=== PATIENT | male | born 1945 | race Caucasian/White ===

== ENCOUNTER 2019-03-22 21:48 | Inpatient (IN) | payer OTHER, MEDICARE ==
[2019-03-22] MEDS ORDERED: Acetaminophen/HYDROcodone 325-10 MG Tab PO ONE (22:07)
--- NOTE | 2019-03-22 22:12 | EDM.PDOC ---
ED HPI GENERAL MEDICAL PROBLEM - General Chief Complaint: Lower Extremity Injury/Pain Stated Complaint: FALL/LT HIP PAIN Time Seen by Provider: 03/22/19 22:07 Source of Information: Reports: Patient History Limitations: Reports: No Limitations - History of Present Illness INITIAL COMMENTS - FREE TEXT/NARRATIVE: Patient slipped on ice in a parking lot, landed on left buttock. Complains of pain to this area. Painful to bear weight on the left leg. Denies any other injuries. No headache, loss of consciousness, neck pain, chest pain, shortness of breath, abdominal pain, numbness, tingling or weakness. He takes no medications. Denies h/o CAD. Onset: Today Duration: Hour(s): (1) Location: Reports: Pelvis Quality: Reports: Dull Severity: Moderate left hip Pain Score (Numeric/FACES): 7 - Related Data Allergies Allergy/AdvReac Type Severity Reaction Status Date / Time No Known Allergies Allergy Verified 03/22/19 22:27 Home Meds: Home Meds Aspirin [Lo-Dose Aspirin EC] 81 mg PO DAILY 03/22/19 [History] Multivit-Min/FA/Lycopen/Lutein [Centrum Silver Men Tablet] 1 tab PO DAILY [History] Past Medical History - Past Health History Medical/Surgical History: Denies Medical/Surgical History Review of Systems - Review of Systems Review Of Systems: Comprehensive ROS is negative, except as noted in HPI. ED EXAM, GENERAL - Physical Exam Exam: See Below Exam Limited By: No Limitations General Appearance: Alert, WD/WN, No Apparent Distress Eye Exam: Bilateral Eye: EOMI, PERRL Throat/Mouth: No Airway Compromise Head: Atraumatic, Normocephalic Neck: Non-Tender Respiratory/Chest: No Respiratory Distress, Lungs Clear, Normal Breath Sounds Cardiovascular: Regular Rate, Rhythm, No Murmur Peripheral Pulses: 2+: Dorsalis Pedis (L) GI/Abdominal: Non-Tender Back Exam: Full Range of Motion. No: Vertebral Tenderness Extremities: Other (left buttock tenderness. No hip tenderness. No rotation or shortening of the leg.) Neurological: Alert, Oriented, Normal Cognition, No Motor/Sensory Deficits Psychiatric: Normal Affect, Normal Mood Skin Exam: Warm, Dry, Intact Course - Vital Signs Last Recorded V/S: Last Vital Signs Temp 36.5 C 03/22/19 21:48 Pulse 80 03/22/19 21:48 Resp 18 03/22/19 21:48 BP 153/72 H 03/22/19 21:48 Pulse Ox 95 03/22/19 21:48 - Orders/Labs/Meds Orders: Active Orders 24 hr Category Date Time Status Admission Status [Patient Status] [ADT] Routine ADT 03/22/19 22:52 Ordered Hip Min 2V or 3V w Pelvis Lt [CR] Stat Exams 03/22/19 21:51 Taken Meds: Medications Discontinued Medications Generic Name Dose Route Start Last Admin Trade Name Frerubén PRN Reason Stop Dose Admin Hydrocodone Bitart/Acetaminophen 1 tab 03/22/19 22:07 03/22/19 22:55 [place] 325-10 Mg PO 03/22/19 22:08 1 tab ONETIME ONE Administration - Radiology Interpretation Free Text/Narrative:: Left Hip w/ Pelvis XR: Fracture of left superior pubic ramus. A left inferior pubic ramus fracture most likely also present. No femur fracture. - Re-Assessments/Exams Free Text/Narrative Re-Assessment/Exam: 03/22/19 22:59 Patient care discussed with Dr. Anuel Bauer, fracture is non-operative, recommends weight bearing as tolerated and PCP follow up. Patient lives alone and must climb steps to enter home. He does not feel safe to be discharged home this evening. Will refer to observation at [facility]. Departure - Departure Time of Disposition: 23:02 Disposition: Refer to Observation Condition: Good Clinical Impression: Closed fracture of pubic ramus Qualifiers: Encounter type: initial encounter Laterality: left Qualified Code(s): S32.592A - Other specified fracture of left pubis, initial encounter for closed fracture - Discharge Information *PRESCRIPTION DRUG MONITORING PROGRAM REVIEWED*: Yes *COPY OF PRESCRIPTION DRUG MONITORING REPORT IN PATIENT BRANNON: Not Applicable Forms: ED Department Discharge Sepsis Event Note - Focused Exam Vital Signs: Vital Signs Temp Pulse Resp BP Pulse Ox 03/22/19 21:48 36.5 C 80 18 153/72 H 95 Date Exam was Performed: 03/22/19 Time Exam was Performed: 22:57 - My Orders Last 24 Hours: My Active Orders 03/22/19 21:51 Hip Min 2V or 3V w Pelvis Lt [CR] Stat 03/22/19 22:52 Admission Status [Patient Status] [ADT] Routine - Assessment/Plan Last 24 Hours: My Active Orders 03/22/19 21:51 Hip Min 2V or 3V w Pelvis Lt [CR] Stat 03/22/19 22:52 Admission Status [Patient Status] [ADT] Routine
[2019-03-23] MEDS: Acetaminophen/HYDROcodone 325-5 MG Tab PO PRN ×4 (05:00→23:30)
[2019-03-23] MEDS: Enoxaparin 40 MG/0.4 ML Syringe SUBCUT SCH (11:45)
--- NOTE | 2019-03-23 12:22 | PCM.HP.2 ---
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 After the best but anyone total parking lot and slipped on the ice on his left buttocks. He said he had someone help him up and then drive him to the ER. He complained of left hip pain. He was x-rayed and showed to have a left superior and inferior pelvic ramus fracture. She reports shows no left hip fracture. Patient says is in a lot of pain but the pain pills are helping. He has no other medical conditions. He says he's been feeling fine. left hip Pain Score (Numeric/FACES): 7 - Related Data Allergies/Adverse Reactions: Allergies Allergy/AdvReac Type Severity Reaction Status Date / Time No Known Allergies Allergy Verified 03/22/19 22:27 Home Medications: Home Meds Aspirin [Lo-Dose Aspirin EC] 81 mg PO DAILY 03/22/19 [History] Multivit-Min/FA/Lycopen/Lutein [Centrum Silver Men Tablet] 1 tab PO DAILY [History] Past Medical History - Past Health History Medical/Surgical History: Denies Medical/Surgical History Respiratory History: Reports: Pulmonary Fibrosis, Other (See Below) Other Respiratory History: some emphysema Dermatologic History: Reports: Eczema, Other (See Below) Other Dermatologic History: very dry itchy skin in the winter - Infectious Disease History Infectious Disease History: Reports: Chicken Pox, Measles, Mumps - Past Surgical History Respiratory Surgical History: Reports: None GI Surgical History: Reports: Appendectomy, Hernia Repair/Other Musculoskeletal Surgical History: Reports: Arthroscopic Knee Social & Family History - Family History Family Medical History: Noncontributory - Tobacco Use Smoking Status *Q: Current Every Day Smoker Years of Tobacco use: 50 Packs/Tins Daily: 1 Used Tobacco, but Quit: No Second Hand Smoke Exposure: Yes - Caffeine Use Caffeine Use: Reports: Coffee Other Caffeine Use: 4-5 cups coffee - Alcohol Use Number of Drinks Per Day: 0 - Recreational Drug Use Recreational Drug Use: No H&P Review of Systems - Review of Systems: Review Of Systems: See Below General: Reports: No Symptoms HEENT: Reports: No Symptoms Pulmonary: Reports: No Symptoms Cardiovascular: Reports: No Symptoms Gastrointestinal: Reports: No Symptoms, Melena Genitourinary: Reports: No Symptoms Musculoskeletal: Reports: Other (See HPI otherwise denied) Skin: Reports: No Symptoms Psychiatric: Reports: No Symptoms Neurological: Reports: No Symptoms Hematologic/Lymphatic: Reports: No Symptoms Immunologic: Reports: No Symptoms Exam - Exam Exam: See Below - Vital Signs Vital Signs: Last Vital Signs Temp 98.2 F 03/23/19 08:00 Pulse 72 03/23/19 08:00 Resp 17 03/23/19 08:00 BP 124/71 03/23/19 08:00 Pulse Ox 94 L 03/23/19 08:00 Weight: 202 lb 14.4 oz - Exam General: Alert, Oriented, Cooperative HEENT: PERRLA, Conjunctiva Clear, Posterior Pharynx Clear, TMs Clear Neck: Supple, Trachea Midline, Full Range of Motion. No: Lymphadenopathy Lungs: Clear to Auscultation, Normal Respiratory Effort. No: Rales, Rhonchi, Rub, Wheezing Cardiovascular: Regular Rate, Regular Rhythm. No: Systolic Murmur, Diastolic Murmur GI/Abdominal Exam: Normal Bowel Sounds, Soft, Non-Tender, No Distention Extremities: Other (Pain with movement of his left leg. Some pain over the left anterior iliac spine.) Skin: Warm, Dry, Intact Neurological: Strength Equal Bilateral. No: Normal Gait Neuro Extensive - Mental Status: Alert, Oriented x3, Normal Mood/Affect, Normal Cognition Neuro Extensive - Motor, Sensory, Reflexes: No: Normal Gait Psychiatric: Alert, Normal Affect, Normal Mood - Patient Data Lab Results Last 24 hrs: Laboratory Results - last 24 hr 03/23/19 03/23/19 Range/Units 10:41 10:41 WBC 7.6 (4.5-12.0) X10-3/uL RBC 4.26 L (4.30-5.75) x10(6)uL Hgb 13.4 L (13.5-17.8) g/dL Hct 39.8 (30.0-51.3) % MCV 93.4 (80-96) fL MCH 31.4 (27.7-33.6) pg MCHC 33.6 (32.2-35.4) g/dL RDW 11.9 (11.5-15.5) % Plt Count 234 (125-369) X10(3)uL MPV 6.9 L (7.4-10.4) fL Neut % (Auto) 66.1 (46-82) % Lymph % (Auto) 17.9 (13-37) % [place] % (Auto) 12.6 H (4-12) % Eos % (Auto) 3 (1.0-5.0) % Baso % (Auto) 1 (0-2) % Neut # (Auto) 5.0 (1.6-8.3) # Lymph # (Auto) 1.4 (0.6-5.0) # [place] # (Auto) 1.0 (0.0-1.3) # Eos # (Auto) 0.2 (0.0-0.8) # Baso # (Auto) 0.0 (0.0-0.2) # Sodium 142 (135-145) mmol/L Potassium 3.7 (3.5-5.3) mmol/L Chloride 105 (100-110) mmol/L Carbon Dioxide 26 (21-32) mmol/L BUN 16 (7-18) mg/dL Creatinine 1.1 (0.70-1.30) mg/dL Est Cr Clr Drug Dosing 66.63 mL/min Estimated GFR (MDRD) > 60 (>60) BUN/Creatinine Ratio 14.5 (9-20) Glucose 129 H (80-116) mg/dL Calcium 8.9 (8.6-10.2) mg/dL Result Diagrams: 03/23/19 10:41 03/23/19 10:41 Sepsis Event Note - Evaluation Sepsis Screening Result: No Definite Risk - Focused Exam Vital Signs: Vital Signs Temp Pulse Resp BP Pulse Ox 03/23/19 08:00 98.2 F 72 17 124/71 94 L Date Exam was Performed: 03/23/19 Time Exam was Performed: 12:17 - Problem List (1) Closed fracture of pubic ramus SNOMED Code(s): 08037201 ICD Code: S32.599A - OTH FRACTURE OF UNSP PUBIS, INIT ENCNTR FOR CLOSED FRACTURE Status: Acute Current Visit: Yes Qualifiers: Encounter type: initial encounter Laterality: left Qualified Code(s): S32.592A - Other specified fracture of left pubis, initial encounter for closed fracture Problem List Initiated/Reviewed/Updated: Yes Orders Last 24hrs: Active Orders 24 hr Category Date Time Status Admission Status [Patient Status] [ADT] Routine ADT 03/22/19 22:52 Active Ambulate [RC] ASDIRECTED Care 03/22/19 23:14 Active Antiembolic Devices [RC] .Routine Care 03/22/19 23:14 Active Pulse Oximetry [RC] PRN Care 03/22/19 23:14 Active Up With Assistance [RC] ASDIRECTED Care 03/22/19 23:14 Active VTE/DVT Education [RC] Click to Edit Care 03/22/19 23:14 Active Vital Signs [RC] QSHIFT Care 03/22/19 23:14 Active OT Evaluation and Treatment [CONS] Routine Cons 03/22/19 23:19 Active PT Evaluation and Treatment [CONS] Routine Cons 03/22/19 23:19 Active Regular Diet [DIET] Diet 03/23/19 Breakfast Active Hip Min 2V or 3V w Pelvis Lt [CR] Stat Exams 03/22/19 21:51 Taken Acetaminophen/HYDROcodone [[place] 325-5 MG] Med 03/23/19 04:00 Active 1 - 2 tab PO Q6H PRN Enoxaparin [Lovenox] Med 03/23/19 11:00 Active 40 mg SUBCUT Q24H DVT/VTE Prophylaxis Reflex [OM.PC] Per Unit Routine Oth 03/22/19 23:14 Ordered Resuscitation Status Routine Resus Stat 03/22/19 23:14 Ordered Medication Orders Hydrocodone Bitart/Acetaminophen ([place] 325-5 Mg) 1 - 2 tab PO Q6H PRN PRN Reason: Pain Last Admin: 03/23/19 11:44 Dose: 1 tab Admin: 03/23/19 05:00 Dose: 2 tab Enoxaparin Sodium (Lovenox) 40 mg SUBCUT Q24H SONJA Last Admin: 03/23/19 11:45 Dose: 40 mg Assessment/Plan Comment:: 1. He is initially admitted to observation I will change and inpatient. 2. Pain control with hydrocodone. 3. Regular diet 4. Check electrolytes, CBC 5. DVT prophylaxis with Lovenox 6. Up with assist depending on patient pain. 7. PT/OT eval - Mortality Measure Prognosis:: Good
[2019-03-24] MEDS: Acetaminophen/HYDROcodone 325-5 MG Tab PO PRN ×3 (06:12→18:36)
--- NOTE | 2019-03-24 08:45 | PCM.PN ---
- General Info Date of Service: 03/24/19 Admission Dx/Problem (Free Text): Patient states he is comfortable in bed. He is having a lot of pain when he moves or walks. He has not had a bowel movement in 2 days. He says he is urged this morning. - Patient Data Vitals - Most Recent: Last Vital Signs Temp 98.2 F 03/24/19 00:00 Pulse 85 03/24/19 00:00 Resp 16 03/24/19 00:00 BP 128/72 03/24/19 00:00 Pulse Ox 94 L 03/24/19 00:00 Weight - Most Recent: 202 lb 14.4 oz Lab Results Last 24 Hours: Laboratory Results - last 24 hr 03/23/19 03/23/19 Range/Units 10:41 10:41 WBC 7.6 (4.5-12.0) X10-3/uL RBC 4.26 L (4.30-5.75) x10(6)uL Hgb 13.4 L (13.5-17.8) g/dL Hct 39.8 (30.0-51.3) % MCV 93.4 (80-96) fL MCH 31.4 (27.7-33.6) pg MCHC 33.6 (32.2-35.4) g/dL RDW 11.9 (11.5-15.5) % Plt Count 234 (125-369) X10(3)uL MPV 6.9 L (7.4-10.4) fL Neut % (Auto) 66.1 (46-82) % Lymph % (Auto) 17.9 (13-37) % [place] % (Auto) 12.6 H (4-12) % Eos % (Auto) 3 (1.0-5.0) % Baso % (Auto) 1 (0-2) % Neut # (Auto) 5.0 (1.6-8.3) # Lymph # (Auto) 1.4 (0.6-5.0) # [place] # (Auto) 1.0 (0.0-1.3) # Eos # (Auto) 0.2 (0.0-0.8) # Baso # (Auto) 0.0 (0.0-0.2) # Sodium 142 (135-145) mmol/L Potassium 3.7 (3.5-5.3) mmol/L Chloride 105 (100-110) mmol/L Carbon Dioxide 26 (21-32) mmol/L BUN 16 (7-18) mg/dL Creatinine 1.1 (0.70-1.30) mg/dL Est Cr Clr Drug Dosing 66.63 mL/min Estimated GFR (MDRD) > 60 (>60) BUN/Creatinine Ratio 14.5 (9-20) Glucose 129 H (80-116) mg/dL Calcium 8.9 (8.6-10.2) mg/dL Med Orders - Current: Current Medications Hydrocodone Bitart/Acetaminophen ([place] 325-5 Mg) 1 - 2 tab PO Q6H PRN PRN Reason: Pain Last Admin: 03/24/19 06:12 Dose: 1 tab Enoxaparin Sodium (Lovenox) 40 mg SUBCUT Q24H SONJA Last Admin: 03/23/19 11:45 Dose: 40 mg Discontinued Medications Hydrocodone Bitart/Acetaminophen ([place] 325-10 Mg) 1 tab PO ONETIME ONE Stop: 03/22/19 22:08 Last Admin: 03/22/19 22:55 Dose: 1 tab - Exam General: Alert, Oriented Lungs: Normal Respiratory Effort Sepsis Event Note - Evaluation Sepsis Screening Result: No Definite Risk - Focused Exam Vital Signs: Vital Signs Temp Pulse Resp BP Pulse Ox 03/24/19 00:00 98.2 F 85 16 128/72 94 L Date Exam was Performed: 03/24/19 Time Exam was Performed: 08:43 - Problem List & Annotations (1) Closed fracture of pubic ramus SNOMED Code(s): 04161169 Code(s): S32.599A - OTH FRACTURE OF UNSP PUBIS, INIT ENCNTR FOR CLOSED FRACTURE Status: Acute Current Visit: Yes Qualifiers: Encounter type: initial encounter Laterality: left Qualified Code(s): S32.592A - Other specified fracture of left pubis, initial encounter for closed fracture (2) Palliative care status SNOMED Code(s): 039668913 Code(s): Z51.5 - ENCOUNTER FOR PALLIATIVE CARE Status: Acute Current Visit: Yes - Problem List Review Problem List Initiated/Reviewed/Updated: Yes - My Orders Last 24 Hours: My Active Orders 03/23/19 11:00 Enoxaparin [Lovenox] 40 mg SUBCUT Q24H 03/23/19 12:22 Admission Status [Patient Status] [ADT] Routine - Plan Plan:: Continue current care. Told the patient to watch for constipation because is on narcotics. Continue PT/OT.
[2019-03-24] MEDS: Ibuprofen 600 MG Tab PO PRN ×3 (10:43→22:49)
[2019-03-24] MEDS: Enoxaparin 40 MG/0.4 ML Syringe SUBCUT SCH (13:00)
[2019-03-24] MEDS: Multivitamin Tab PO SCH (19:03)
[2019-03-25] MEDS: Acetaminophen/HYDROcodone 325-5 MG Tab PO PRN ×4 (02:01→22:50)
[2019-03-25] MEDS: Ibuprofen 600 MG Tab PO PRN ×3 (06:15→19:07)
--- NOTE | 2019-03-25 07:41 | PCM.PN ---
- General Info Date of Service: 03/25/19 Admission Dx/Problem (Free Text): Patient states he did get a little bit of sleep last night is more comfortable lying in bed. He says his mood today. The ibuprofen has been helping the left hip pain. - Patient Data Vitals - Most Recent: Last Vital Signs Temp 99.4 F 03/25/19 02:00 Pulse 72 03/25/19 02:00 Resp 18 03/25/19 02:00 BP 125/67 03/25/19 02:00 Pulse Ox 93 L 03/25/19 02:00 Weight - Most Recent: 202 lb 14.4 oz I&O - Last 24 Hours: Intake & Output 03/24/19 03/25/19 03/25/19 22:59 06:59 14:59 Output Total 1150 Balance -1150 Med Orders - Current: Current Medications Hydrocodone Bitart/Acetaminophen ([place] 325-5 Mg) 1 - 2 tab PO Q6H PRN PRN Reason: Pain Last Admin: 03/25/19 02:01 Dose: 1 tab Enoxaparin Sodium (Lovenox) 40 mg SUBCUT Q24H [facility] Last Admin: 03/24/19 13:00 Dose: 40 mg Ibuprofen (Motrin) 600 mg PO Q6H PRN PRN Reason: Pain Last Admin: 03/25/19 06:15 Dose: 600 mg Multivitamins/Minerals/Vitamin C (Tab-A-Angelica) 1 tab PO DAILY [facility] Last Admin: 03/24/19 19:03 Dose: 1 tab Discontinued Medications Hydrocodone Bitart/Acetaminophen ([place] 325-10 Mg) 1 tab PO ONETIME ONE Stop: 03/22/19 22:08 Last Admin: 03/22/19 22:55 Dose: 1 tab - Exam General: Alert, Oriented Extremities: No Pedal Edema Sepsis Event Note - Evaluation Sepsis Screening Result: No Definite Risk - Focused Exam Vital Signs: Vital Signs Temp Pulse Resp BP Pulse Ox 03/25/19 02:00 99.4 F 72 18 125/67 93 L Date Exam was Performed: 03/25/19 Time Exam was Performed: 07:41 - Problem List & Annotations (1) Closed fracture of pubic ramus SNOMED Code(s): 15855076 Code(s): S32.599A - OTH FRACTURE OF UNSP PUBIS, INIT ENCNTR FOR CLOSED FRACTURE Status: Acute Current Visit: Yes Qualifiers: Encounter type: initial encounter Laterality: left Qualified Code(s): S32.592A - Other specified fracture of left pubis, initial encounter for closed fracture (2) Palliative care status SNOMED Code(s): 878399456 Code(s): Z51.5 - ENCOUNTER FOR PALLIATIVE CARE Status: Acute Current Visit: Yes - Problem List Review Problem List Initiated/Reviewed/Updated: Yes - My Orders Last 24 Hours: My Active Orders 03/24/19 10:31 Ibuprofen [Motrin] 600 mg PO Q6H PRN 03/24/19 18:45 Multivitamins [Tab-A-Angelica] 1 tab PO DAILY - Plan Plan:: Continue current care. PTOT to continue therapy tomorrow
[2019-03-25] MEDS: Enoxaparin 40 MG/0.4 ML Syringe SUBCUT SCH (10:50)
[2019-03-25] MEDS: Multivitamin Tab PO SCH (10:54)
[2019-03-25] MEDS: Polyethylene Glycol 3350 Powder 17 GM Packet PO SCH (14:44)
[2019-03-26] MEDS: Ibuprofen 600 MG Tab PO PRN ×3 (01:00→14:46)
[2019-03-26] MEDS: Acetaminophen/HYDROcodone 325-5 MG Tab PO PRN (05:53)
--- NOTE | 2019-03-26 08:05 | PCM.PN ---
- General Info Date of Service: 03/26/19 Admission Dx/Problem (Free Text): Patient has not had a BM as of yet. But he denies abdominal pain, distention or MiraLAX was started last night. Patient states he has lots of pain with any kind of movement including rolling around in bed getting a chair. He was up in the chair yesterday. Walking causes lots of discomfort. - Patient Data Vitals - Most Recent: Last Vital Signs Temp 98.9 F 03/26/19 01:00 Pulse 68 03/26/19 01:00 Resp 18 03/26/19 01:00 BP 134/71 03/26/19 01:00 Pulse Ox 93 L 03/26/19 01:00 Weight - Most Recent: 202 lb 14.4 oz I&O - Last 24 Hours: Intake & Output 03/25/19 03/26/19 03/26/19 22:59 06:59 14:59 Intake Total 800 Output Total 1200 Balance -400 Med Orders - Current: Current Medications Hydrocodone Bitart/Acetaminophen ([place] 325-5 Mg) 1 - 2 tab PO Q6H PRN PRN Reason: Pain Last Admin: 03/26/19 05:53 Dose: 1 tab Enoxaparin Sodium (Lovenox) 40 mg SUBCUT Q24H [facility] Last Admin: 03/25/19 10:50 Dose: 40 mg Ibuprofen (Motrin) 600 mg PO Q6H PRN PRN Reason: Pain Last Admin: 03/26/19 07:50 Dose: 600 mg Multivitamins/Minerals/Vitamin C (Tab-A-Angelica) 1 tab PO DAILY [facility] Last Admin: 03/25/19 10:54 Dose: 1 tab Polyethylene Glycol (Miralax) 17 gm PO DAILY [facility] Last Admin: 03/25/19 14:44 Dose: 17 gm Discontinued Medications Hydrocodone Bitart/Acetaminophen ([place] 325-10 Mg) 1 tab PO ONETIME ONE Stop: 03/22/19 22:08 Last Admin: 03/22/19 22:55 Dose: 1 tab - Exam General: Alert, Oriented, Cooperative Lungs: Normal Respiratory Effort Sepsis Event Note - Evaluation Sepsis Screening Result: No Definite Risk - Focused Exam Vital Signs: Vital Signs Temp Pulse Resp BP Pulse Ox 03/26/19 01:00 98.9 F 68 18 134/71 93 L Date Exam was Performed: 03/26/19 Time Exam was Performed: 08:03 - Problem List & Annotations (1) Closed fracture of pubic ramus SNOMED Code(s): 66033103 Code(s): S32.599A - OTH FRACTURE OF UNSP PUBIS, INIT ENCNTR FOR CLOSED FRACTURE Status: Acute Current Visit: Yes Qualifiers: Encounter type: initial encounter Laterality: left Qualified Code(s): S32.592A - Other specified fracture of left pubis, initial encounter for closed fracture (2) Palliative care status SNOMED Code(s): 842618275 Code(s): Z51.5 - ENCOUNTER FOR PALLIATIVE CARE Status: Acute Current Visit: Yes - Problem List Review Problem List Initiated/Reviewed/Updated: Yes - My Orders Last 24 Hours: My Active Orders 03/25/19 14:00 polyethylene glycoL 3350 [MiraLAX] 17 gm PO DAILY - Plan Plan:: MiraLAX for constipation. I told the patient if he wants a suppository he should ask. He does not want to do that at this time. PT and OT to evaluate. See what her function and where we can place him for rehabilitation.
[2019-03-26] MEDS: Multivitamin Tab PO SCH (09:11)
[2019-03-26] MEDS: Polyethylene Glycol 3350 Powder 17 GM Packet PO SCH (09:11)
[2019-03-26] MEDS ORDERED: Acetaminophen/HYDROcodone 325-5 MG Tab PO PRN ×2 (09:47→09:48)
[2019-03-26] MEDS: Enoxaparin 40 MG/0.4 ML Syringe SUBCUT SCH (11:50)
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
== END 2019-03-26 16:38 | disposition home or self-care (01) | DRG 536 ==
LOC: FB.ED 21:48 → FB.MS 23:12 → OBSVTOIN 03-23 12:22
PROVIDERS: ADMIT Emergency Medicine; ATTEND Family Medicine
DX: S32.592A Other specified fracture of left pubis, initial encounter for closed fracture (principal); F17.210 Nicotine dependence, cigarettes, uncomplicated; Z51.5 Encounter for palliative care; W00.0XXA Fall on same level due to ice and snow, initial encounter; J43.9 Emphysema, unspecified; F17.200 Nicotine dependence, unspecified, uncomplicated; Y92.481 Parking lot as the place of occurrence of the external cause; Y93.89 Activity, other specified; Z79.82 Long term (current) use of aspirin; Z79.899 Other long term (current) drug therapy; Z90.49 Acquired absence of other specified parts of digestive tract; Z98.890 Other specified postprocedural states
CPT/HCPCS: 36415; 73502; 80048; 85025; A9270 ×3; J1650; 96372; 97116-GP; 97161-GP; 97166-GO; 97530-GO; 97535-GO; 97542-GO; 99283; 99284-25; G0378

== ENCOUNTER 2019-03-26 16:40 | Inpatient (IN) | payer OTHER, MEDICARE ==
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
[2019-03-26] MEDS: Acetaminophen/HYDROcodone 325-5 MG Tab PO PRN (18:18)
[2019-03-26] MEDS: Ibuprofen 600 MG Tab PO PRN (20:49)
[2019-03-27] MEDS: Acetaminophen/HYDROcodone 325-5 MG Tab PO PRN ×4 (00:33→21:16)
[2019-03-27] MEDS: Ibuprofen 600 MG Tab PO PRN ×3 (03:40→17:32)
[2019-03-27] MEDS ORDERED: Bisacodyl 10 MG Supp RECTAL PRN (08:15)
[2019-03-27] MEDS: Polyethylene Glycol 3350 Powder 17 GM Packet PO SCH (08:44)
[2019-03-27] MEDS: Multivitamin Tab PO SCH (08:44)
[2019-03-28] MEDS: Ibuprofen 600 MG Tab PO PRN ×4 (00:02→22:13)
[2019-03-28] MEDS: Acetaminophen/HYDROcodone 325-5 MG Tab PO PRN ×3 (06:41→23:56)
[2019-03-28] MEDS: Polyethylene Glycol 3350 Powder 17 GM Packet PO SCH (09:12)
[2019-03-28] MEDS: Multivitamin Tab PO SCH (09:12)
[2019-03-28] MEDS ORDERED: Magnesium Hydroxide 400 MG/5 ML Susp 30 ML Cup PO PRN (13:36)
[2019-03-29] MEDS: Ibuprofen 600 MG Tab PO PRN ×3 (05:30→21:15)
[2019-03-29] MEDS: Acetaminophen/HYDROcodone 325-5 MG Tab PO PRN ×3 (06:18→18:50)
[2019-03-29] MEDS: Polyethylene Glycol 3350 Powder 17 GM Packet PO SCH (08:14)
[2019-03-29] MEDS: Multivitamin Tab PO SCH (08:14)
[2019-03-30] MEDS: Acetaminophen/HYDROcodone 325-5 MG Tab PO PRN ×4 (02:05→20:22)
[2019-03-30] MEDS: Ibuprofen 600 MG Tab PO PRN ×3 (04:16→17:50)
[2019-03-30] MEDS: Multivitamin Tab PO SCH (08:04)
[2019-03-30] MEDS: Polyethylene Glycol 3350 Powder 17 GM Packet PO SCH ×2 (08:04→08:07)
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
[2019-03-31] MEDS: Ibuprofen 600 MG Tab PO PRN ×4 (00:17→18:51)
[2019-03-31] MEDS: Acetaminophen/HYDROcodone 325-5 MG Tab PO PRN ×4 (03:58→22:42)
[2019-03-31] MEDS: Multivitamin Tab PO SCH (09:24)
[2019-03-31] MEDS: Polyethylene Glycol 3350 Powder 17 GM Packet PO SCH (09:24)
[2019-03-31] MEDS ORDERED: fentaNYL 12 MCG/HR Transdermal Patch TRDERM SCH (10:15)
[2019-04-01] MEDS: Ibuprofen 600 MG Tab PO PRN ×4 (00:41→19:19)
[2019-04-01] MEDS: Acetaminophen/HYDROcodone 325-5 MG Tab PO PRN ×4 (04:36→23:17)
[2019-04-01] MEDS: Multivitamin Tab PO SCH (09:09)
[2019-04-01] MEDS: Polyethylene Glycol 3350 Powder 17 GM Packet PO SCH (09:10)
[2019-04-02] MEDS: Ibuprofen 600 MG Tab PO PRN ×3 (01:47→16:04)
[2019-04-02] MEDS: Acetaminophen/HYDROcodone 325-5 MG Tab PO PRN (05:36)
[2019-04-02] MEDS: Multivitamin Tab PO SCH (08:12)
[2019-04-02] MEDS: Polyethylene Glycol 3350 Powder 17 GM Packet PO SCH (09:24)
[2019-04-02] MEDS ORDERED: fentaNYL 25 MCG/HR Transdermal Patch TRDERM SCH (10:15)
[2019-04-02] MEDS ORDERED: Acetaminophen/HYDROcodone 325-10 MG Tab PO ONE (11:30)
[2019-04-03] MEDS: Ibuprofen 600 MG Tab PO PRN ×4 (00:19→23:26)
[2019-04-03] MEDS: Multivitamin Tab PO SCH (09:31)
[2019-04-03] MEDS: Polyethylene Glycol 3350 Powder 17 GM Packet PO SCH (09:31)
[2019-04-03] MEDS: fentaNYL 12 MCG/HR Transdermal Patch TRDERM SCH (10:53)
[2019-04-04] MEDS: Ibuprofen 600 MG Tab PO PRN ×3 (06:41→19:27)
[2019-04-04] MEDS: Multivitamin Tab PO SCH (08:25)
[2019-04-04] MEDS: Polyethylene Glycol 3350 Powder 17 GM Packet PO SCH (08:28)
[2019-04-05] MEDS: Ibuprofen 600 MG Tab PO PRN ×4 (02:14→21:50)
[2019-04-05] MEDS: Multivitamin Tab PO SCH (08:43)
[2019-04-05] MEDS: Polyethylene Glycol 3350 Powder 17 GM Packet PO SCH (09:20)
[2019-04-06] MEDS: Ibuprofen 600 MG Tab PO PRN ×2 (04:36→12:04)
[2019-04-06] MEDS: fentaNYL 12 MCG/HR Transdermal Patch TRDERM SCH (09:53)
[2019-04-06] MEDS: Multivitamin Tab PO SCH (09:53)
[2019-04-06] MEDS: Polyethylene Glycol 3350 Powder 17 GM Packet PO SCH (09:54)
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
== END 2019-04-06 12:25 | disposition home health service (06) | DRG 536 ==
LOC: FB.MS 16:40
PROVIDERS: ADMIT Family Medicine; ATTEND Family Medicine
DX: S32.592A Other specified fracture of left pubis, initial encounter for closed fracture (principal); J84.10 Pulmonary fibrosis, unspecified; J43.9 Emphysema, unspecified; K59.00 Constipation, unspecified; Z51.5 Encounter for palliative care; Z79.82 Long term (current) use of aspirin; Z79.899 Other long term (current) drug therapy; Z90.49 Acquired absence of other specified parts of digestive tract; Z98.890 Other specified postprocedural states; W00.0XXA Fall on same level due to ice and snow, initial encounter; Y92.481 Parking lot as the place of occurrence of the external cause
CPT/HCPCS: 97110-GO; 97110-GP; 97116-GP; 97530-GO; 97535-GO; A9270-GY